=== PATIENT | male | born 1940 | race Caucasian/White ===

== ENCOUNTER 2016-08-18 16:19 | Emergency (ER) | payer MEDICARE, OTHER ==
[~2016-08-18] VITALS: Ht 172.7 cm; Wt 56.4 kg
[~2016-08-18 16:19] MED LIST: ASPI-973 PO; CALC600T12 PO; CHOL100043 PO; DABI150C PO; DONE10TA42 PO; LEVO500T79 PO; LEVO75TA4 PO; LISI1TAB7 PO; MEMA10TA20 PO; POLY17PO6 PO
[2016-08-18 16:38] VITALS: BP 128/72; PULSE 107; RESP 15; O2SAT 96
[2016-08-18 20:07] LABS: BASOPHILS % (AUTO) 0.9 % (0-3); EOSINOPHILS % (AUTO) 5.6 % (0-5); MONOCYTES % (AUTO) 11.2 % (4-12); Mean Corpuscular Hemoglobin 30.7 pg (27.0-35.0); Mean Corpuscular Volume 95.1 fL (81-100); NEUTROPHILS % (AUTO) 74.8 % (40-74); Platelet Count 105 bil/L (150-400)
--- NOTE | 2016-08-18 20:27 | ED.REPORT ---
HPI-General Illness Date of Service Aug 18, 2016 ED Provider: Dr. Conrad Bearden MD A 75 year old male with a history of retroperitoneal follicular lymphoma, stage V dementia, hypertension and atrial fibrillation presents to the ED complaining of worsening confusion that began earlier this morning. Patient was seen at Urgent Care after the patient's expressed concern for a bladder infection. denies vomiting or fever. Patient is scheduled to received his last [address] Banks this week. denies any recent medication changes. Nursing Notes Stated Complaint: POSSIBLE UTI Chief Complaint: General Complaint Nursing Notes Reviewed: Yes Allergies: Coded Allergies: hydrocodone (Verified Adverse Reaction, Severe, INTOLERANCE, 12/23/15) hyoscyamine (Verified Adverse Reaction, Intermediate, palpitations, ) Uncoded Allergies: SEASONAL (Allergy, Severe, 01/19/04) Scheduled Aspirin (Aspirin) 81 Mg Tablet 81 MG PO DAILY Calcium Carbonate (Calcium) 600 Mg Tablet 600 MG PO BID Cholecalciferol (Vitamin D3) (Vitamin D) 1,000 Unit Tablet 1,000 UNIT PO BID Dabigatran Etexilate Mesylate (Pradaxa) 150 Mg Capsule 75 MG PO BID Donepezil (Donepezil) 10 Mg Tablet 10 MG PO HS Levofloxacin (Levofloxacin) 500 Mg Tablet 500 MG PO DAILY Levothyroxine (Levothyroxine) 75 Mcg Tablet 75 MCG PO DAILY Lisinopril / HCTZ 10-12.5 mg (Lisinopril / HCTZ 10-12.5 mg) 1 Each Tablet 0.5 TAB PO DAILY Memantine HCl (Memantine HCl) 10 Mg Tablet 10 MG PO BID Scheduled PRN Polyethylene Glycol 3350 (Miralax) 17 Gm Powd.pack 17 GM PO DAILY PRN PRN For Constipation General Time Seen by MD: 20:27 Chief Complaint Other (Confusion) Hx Obtained From: Patient, Spouse Arrived By: Walk-in Sudden in Onset?: No Onset Occurred: 9 - 12 hours ago Symptom Duration: Since onset Associated with: Denies: Fever, Vomiting Pertinent Negative: Pt denies other symptoms Recent Healthcare: No recent hospitalization, Recent doctor visit Past Medical History Past Medical History Notes: Oncologist: Dr. Banks Neurologist: Dr. Adalberto Xavier Past Medical History Multiple small bowel obstructions Memory loss - Stage V dementia Bulky retroperitoneal follicular lymphoma, grade 1-2 Reports: Cancer, Hypertension Reports: Atrial fibrillation Smoking History Never Smoker Social History Alcohol Use: Denies alcohol use Drug Use: Denies drug use Other Social History: Good social support, , Local resident Ambulatory Status Independent Review of Systems Unable to Obtain ROS Mental status ( provides due to dementia ) Full Review of Systems Constitutional: Denies: Chills, Fever Respiratory: Denies: Shortness of breath GI: Denies: Abdominal pain, Nausea, Vomiting Neurologic: Reports: Confusion Complete sys rev & neg: except as marked. Physical Exam Vital Signs Vital Signs Date Time Temp Pulse Resp B/P Pulse Ox O2 Delivery O2 Flow Rate FiO2 08/18/16 21:57 92 15 118/50 97 Room Air 08/18/16 16:38 36.3 107 15 128/72 96 Room Air Initial VS: Reviewed Extremities: Vascular intact, Neuro intact, No swelling, No tenderness Skin: Warm, Dry, No cyanosis Neurologic: Alert, Nonfocal Psychiatric: Mood/affect normal, Behavior normal General/Constitutional: Awake, Alert Head / Eyes: Atraumatic, Normocephalic, PERRL ENT: Atraumatic, Airway patent, Mucous membranes moist Respiratory / Chest: Atraumatic, Breath sounds NL, Breath sounds = bilat, No respiratory distress Cardiovascular: Heart rate NL, Regular rhythm, Heart sounds NL, No gallop, No murmurs, No rubs Abdomen: Atraumatic, Soft, Non-tender, BS normoactive Back: Atraumatic, Inspection NL, No CVA tenderness Interpretation & Diagnostics Lab Results Interpretation Result Diagram: 08/18/16195108/18/161951 Test 08/18/16 19:52 08/18/16 20:10 White Blood Count 4.3th/mm3 (3.8-10.1) Red Blood Count 3.26mil/mm3 (4.40-5.80) Hemoglobin 10.0g/dL (13.8-17.2) Hematocrit 31.0% (41.0-50.0) Mean Corpuscular Volume 95.1fL (81-100) Mean Corpuscular Hemoglobin 30.7pg (27.0-35.0) Mean Corpuscular Hemoglobin Concent 32.3% (32.0-37.0) Red Cell Distribution Width 13.3% (12.3-15.4) Platelet Count 105bil/L (150-400) Neutrophils (%) (Auto) 74.8% (40-74) Lymphocytes (%) (Auto) 7.0% (14-46) Monocytes (%) (Auto) 11.2% (4-12) Eosinophils (%) (Auto) 5.6% (0-5) Basophils (%) (Auto) 0.9% (0-3) Sodium Level 135mEq/L (134-144) Potassium Level 4.1mEq/L (3.5-5.2) Chloride Level 98mEq/L (97-108) Carbon Dioxide Level 22mmol/L (18-29) Blood Urea Nitrogen 25mg/dL (8-27) Creatinine 1.17mg/dL (0.76-1.27) Estimat Glomerular Filtration Rate 64mL/min (>59) Glucose Level 100mg/dL (60-99) Calcium Level 9.4mg/dL (8.5-10.1) Total Bilirubin 0.3mg/dL (0.0-1.2) Aspartate Amino Transf (AST/SGOT) 19U/L (0-50) Alanine Aminotransferase (ALT/SGPT) 5U/L (0-44) Alkaline Phosphatase 77U/L (25-160) Total Protein 6.1g/dL (6.4-8.4) Albumin 3.3g/dL (3.4-5.0) Hold Syed Top Tube Received (Received) Urine Color Yellow (YELLOW) Urine Appearance Clear (CLEAR,HAZY) Urine pH 5.5 (5.0-8.0) Urine Specific [place] 1.020 (1.003-1.035) Urine Protein Negativemg/dL (NEG,TRACE) Urine Glucose (UA) Negativemg/dL (NEGATIVE) Urine Ketones Negativemg/dL (NEGATIVE) Urine Occult Blood Negative (NEGATIVE) Urine Nitrite Negative (NEGATIVE) Urine Bilirubin Negative (NEGATIVE) Urine Urobilinogen Normalmg/dL (NORMAL) Urine Leukocyte Esterase Negative (NEGATIVE) Urine RBC 0-2/hpf (0-2) Urine WBC 0-5/hpf (0-5) Urine Epithelial Cells None/hpf (NONE-MOD) Urine Crystals None seen (NONE SEEN) Urine Bacteria Few/hpf (NONE-FEW) Urine Hyaline Casts None/lpf (NONE) Urine Granular Casts None seen (NONE SEEN) Urine Waxy Casts None seen (NONE SEEN) Urine Red Blood Cell Casts None seen (NONE SEEN) Urine White Blood Cell Casts None seen (NONE SEEN) Urine Mucus None seen (None Seen) Urine Trichomonas None seen (NONE SEEN) Urine Yeast None (NONE SEEN) Urinalysis Comment None Urine Culture Reflexed Not indicated ECG Interpretation ECG Interpretation: Normal Sinus Rhythm Rate 89 Left axis deviation Time: 21:01 Interpreted by: ED physician Normal ECG Interpretation: No change from prior ECGs (12/30/2015) X-Ray Chest Interpretation Chest Xray Interpretation: IMPRESSION: Question of minimal infiltrate at the right base with indistinctness of the right hemidiaphragm. Dictated by: Moris Mohan M.D. on 08/18/2016 at 21:03 Interpretation / Wet Read by: Interpret - Radiologist CT Head Interpretation IMPRESSION: No acute intracranial abnormality. Atrophy and microvascular ischemic change are present as before. Dictated by: Moris Mohan M.D. on 08/18/2016 at 20:48 Study: Head CT no contrast Interpretation / Wet Read by: Interpret - Radiologist Re-Eval/Medical Decision Time of Eval: 21:22 Patient Status: Condition improved Re-Evaluation/Progress Note: is informed of the patient's reassuring results. All questions are addressed. She understands and agrees with the plan to discharge with follow up. Counseled Regarding: Diagnosis, Lab results, Need for follow-up, When/why to return to ED Discharge & Departure Primary Impression: Confusion Disposition: Home Discharge Condition All VS Reviewed: Yes Condition: Improved Additional Instructions: Thank you for trusting us with your care this afternoon. Your emergency department evaluation today included interview, examination, EKG , chest X-ray and CT scan. Your evaluation is reassuring, we find no acute medical problem tonight. There is no evidence of an acute infection, cardiovascular problem or neurologic problem tonight. No recent med changes. Please continue home care. follow up with your oncologist a planned for next week. Please return to the ED if you develop shortness of breath, chest pain, dizziness, lightheadedness or any other concerning signs or symptoms. Referrals: Jennifer Xavier MD (PCP) Scribe Attestation Portions of this note were transcribed by Padmini Hicks. I, Dr. Bearden personally performed the history, physical exam and medical decision-making; I reviewed and confirmed the accuracy of the information in the transcribed note. Signed by: Reyna Adkins, 08/18/16 2148. copies to: Jennifer Xavier MD, Donald L MD Aug 18, 2016 20:27 PADMINI HICKS Aug 18, 2016 20:31
--- NOTE | 2016-08-18 20:52 | DRSVH ---
PROCEDURE: CT BRAIN WITHOUT CONTRAST ([id number]) INDICATIONS: confusion TECHNIQUE: Noncontrast 4.5 mm thick angled axial sections acquired from the foramen magnum to the vertex, with c oronal reformats. COMPARISON: [facility], CT, CT BRAIN WO CON, 12/30/2015, 6:21. FINDINGS: Image quality: Excellent. CSF spaces: Basal cisterns are patent. No extra-axial fluid collections. The ventricles are symmet chaitanya in size and shape. Brain: No intracranial bleeds or masses. There is cerebral volume loss for age, with resultant vent ricular and sulcal prominence. There are periventricular and deep white matter chronic small vessel ischemic changes. There is intracranial internal carotid artery atherosclerosis. Skull and face: Calvarium and visualized facial bones appear intact, without suspicious lesions. Sinuses: Visualized sinuses and mastoids are clear. IMPRESSION: No acute intracranial abnormality. Atrophy and microvascular ischemic change are present as before. Dictated by: Moris Mohan M.D. on 08/18/2016 at 20:48 Approved by: Moris Mohan M.D. on 08/18/2016 at 20:50
[2016-08-18 21:06] LABS: APPEARANCE,URINE CLEAR (CLEAR,HAZY); COLOR,URINE YELLOW (YELLOW); OCCULT BLOOD,URINE NEGATIVE (NEGATIVE); PH,URINE 5.5 (5.0-8.0)
[2016-08-18 21:07] LABS: UROBILINOGEN,URINE NORMAL (NORMAL)
--- NOTE | 2016-08-18 21:07 | DRSVH ---
PROCEDURE: X-RAY CHEST ONE VIEW, PORTABLE ([id number]) INDICATIONS: confusion and tachycardia TECHNIQUE: One view of the chest was acquired. COMPARISON: [facility], CT, CT CHEST ABD PELVIS W CON, 07/17/2016, 11:24. [facility], CR, XR CHEST 1VW (PORTABLE), 05/02/2016, 13:53. FINDINGS: Surgical changes and devices: None. Lungs and pleura: No pleural effusions or pneumothorax. There is some indistinctness as a new findin g of the lateral aspect of the right hemidiaphragm suggesting minimal infiltrate. Lungs are otherwise considered clear. Mediastinum: Mediastinal contours appear normal. Heart size is normal. Bones and chest wall: No suspicious bony lesions. Overlying soft tissues appear unremarkable. IMPRESSION: Question of minimal infiltrate at the right base with indistinctness of the right hemidia phragm. Dictated by: Moris Mohan M.D. on 08/18/2016 at 21:03 Approved by: Moris Mohan M.D. on 08/18/2016 at 21:05
[2016-08-18 21:57] VITALS: BP 118/50; PULSE 92; RESP 15; O2SAT 97
== END 2016-08-18 21:58 | disposition home or self-care (01) ==
LOC: SED 16:19
DX: R41.0 Disorientation, unspecified (principal); I11.9 Hypertensive heart disease without heart failure; I48.91 Unspecified atrial fibrillation; Z79.82 Long term (current) use of aspirin; Z88.5 Allergy status to narcotic agent; Z88.8 Allergy status to other drugs, medicaments and biological substances